=== PATIENT | female | born 1985 | race Caucasian/White ===

== ENCOUNTER 2019-10-01 11:37 | Emergency (ER) | payer OTHER, SELFPAY ==
--- NOTE | 2019-10-01 12:03 | ED.SKABFB ---
HPI - Skin/Abscess/Foreign Bdy General Chief complaint: Skin/Abscess/Foreign Body Stated complaint: Rash Time Seen by Provider: 10/01/19 12:39 Source: patient and RN notes reviewed Mode of arrival: ambulatory Limitations: no limitations History of Present Illness HPI narrative: 34-year-old female, who is breast-feeding a 2-month-old infant, presents with concern for poison bharathi. Reports exposure to poison bharathi via her dog. Reports history of allergy to poison bharathi. Reports she has been using [id number] poison bharathi itch relief. MD complaint: rash Related Data Home Medications Medication Instructions Recorded Confirmed nifedipine 90 mg PO DAILY 10/01/19 10/01/19 Allergies Allergy/AdvReac Type Severity Reaction Status Date / Time No Known Allergies Allergy Verified 10/01/19 12:21 Review of Systems Review of Systems: Narrative: CONSTITUTIONAL: Denies malaise, chills, sweats, or fever. EYES: Denies visual changes, redness, or discharge. ENT: Denies rhinorrhea, congestion, sinus pain, otalgia or sore throat. CARDIOVASCULAR: Denies chest pain, palpitations, or edema. RESPIRATORY: Denies cough or dyspnea. SKIN: Reports itchy rash on bilateral arms and legs All systems reviewed & are unremarkable except as noted in HPI and below PMFSH Comments At time of signature, agree with nursing past medical, surgical, social and family history. There is no relevant family history pertinent to the presenting complaint Exam Narrative: Exam Narrative: GENERAL: Well-appearing, well-nourished, and in no acute distress. HEAD: Normocephalic EYES: PERRLA, conjunctivae clear ENT: Nares clears. Mucous membranes moist. Oropharynx without edema, erythema or lesions. Tonsils not enlarged and without exudate. NECK: Supple. CHEST: No respiratory distress. Clear to auscultation. No bony deformities, no asymmetry. Speaks in full sentences. HEART: Regular rate and rhythm. SKIN: Warm, dry. Patches of erythema, some linear patterns. No vesicles noted. NEURO: Alert and oriented x3. PSYCH: Normal mood and affect Course Course Emergency Course: Patient is aware of diagnosis, understands and agrees to treatment plan. Anticipatory guidance given. Patient agrees to follow-up as directed and is aware of reasons to seek care at the emergency department. Portions of this record may have been created with voice recognition software Vital Signs Vital signs: Vital Signs Temperature 98.0 F 10/01/19 12:10 Pulse Rate 65 10/01/19 12:10 Respiratory Rate 10/01/19 12:10 Blood Pressure 111/72 10/01/19 12:10 Pulse Oximetry 100 10/01/19 12:10 Temperature 98.0 F 10/01/19 12:10 Pulse Rate 65 10/01/19 12:10 Respiratory Rate 10/01/19 12:10 Blood Pressure 111/72 10/01/19 12:10 Pulse Oximetry 100 10/01/19 12:10 Reviewed. MDM - Skin/Abscess/Foreign Bdy MDM Narrative Medical decision making narrative: Does not appear at this time to be erythema multiforme, bullous, SJS, TEN; no evidence at this time to suggest RMSF, endocarditis or Lyme disease; patient looks well, nontoxic and is tolerating oral intake; no neurologic signs or symptoms; no headache, photophobia or neck pain; afebrile; appropriate for initial outpatient treatment; discussed the importance of follow-up, patient agrees; question, viral exanthema, contact dermatitis, allergic dermatitis, eczema, urticaria, plant related contact dermatitis. No soft palate or uvula edema, no tongue, lip edema or other mucosal involvement, no respiratory compromise, no stridor, no wheezing, no wheezing, no history of syncope, no hypotension, no nausea, vomiting, or diarrhea. Instructed patient to go to nearest ER immediately for any worsening symptoms including but not limited to: fever, spreading rash, pain, sore throat, headache, dizziness, chest pain, trouble breathing, or any symptoms concerning to the patient. Critical Care Time Critical Care Time Critical Care Time: No
[2019-10-01 12:10] VITALS: BP 111/72; PULSE 65; RESP 20; TEMP 36.7; O2SAT 100
== END 2019-10-01 12:50 | disposition home or self-care (01) ==
PROVIDERS: Emergency Provider Nurse Practitioner
DX: L25.5 Unspecified contact dermatitis due to plants, except food (principal)
CPT/HCPCS: 99203; G0463

== ENCOUNTER 2019-10-02 15:17 | Emergency (ER) | payer OTHER, SELFPAY ==
[2019-10-02 15:23] VITALS: BP 109/68; PULSE 68; RESP 20; TEMP 36.6; O2SAT 100
--- NOTE | 2019-10-02 15:31 | ED.GENADULT ---
HPI - General Adult General Chief complaint: Skin/Abscess/Foreign Body Stated complaint: RASH Time Seen by Provider: 10/02/19 15:31 Source: patient and RN notes reviewed Mode of arrival: ambulatory Limitations: no limitations History of Present Illness HPI narrative: This is a 34 years old female presents to the office for an second opinion regarding her rash. She believes is scabies after looking up her symptoms online. She reports her sign and symptoms indicate scabies because she has intense itch at night and she also noticed that when she applies pink lotion on her lesions; they turn black. She has had poison bharathi in the past; which it never done that for her. She was recently in the hospital for delivery; she concerns that where she gets the scabies from. Denies sick contact. She has dogs who goes out in the wood and brought her poison bharathi at times. Related Data Home Medications Medication Instructions Recorded Confirmed nifedipine 90 mg PO DAILY 10/01/19 10/01/19 Allergies Allergy/AdvReac Type Severity Reaction Status Date / Time No Known Allergies Allergy Verified 10/02/19 15:24 Review of Systems Review of Systems: Narrative: CONSTITUTIONAL: Denies fever, chills ENT: Denies congestion CARDIOVASCULAR: Denies chest pain RESPIRATORY: Denies dyspnea GASTROINTESTINAL: Denies abdominal pain, nausea, vomiting SKIN: Reports itchy rash/lesions on her left arm and right hip. MUSCULOSKELETAL: Denies joins pain NEUROLOGIC: Denies lightheaded All other systems reviewed are negative, except as documented in HPI. [facility] Past Medical History Medical History (Updated 10/02/19 @ 16:00 by CONNER Gamez) HTN (hypertension) Comments At time of signature, I agree with nursing past medical, surgical, social and family history. There is no relevant family history pertinent to the presenting complaint. Exam Narrative: Exam Narrative: GENERAL: This is a well-nourished, well-developed patient, in no apparent distress. CARDIOVASCULAR: Regular rate and rhythm without murmurs, gallops, or rubs. RESPIRATORY: Clear to auscultation. Breath sounds equal bilaterally. No wheezes, rales, or rhonchi. GASTROINTESTINAL: Abdomen soft, non-tender, nondistended. Bowel sounds are active. No hepato-splenomegaly, or palpable masses. No guarding. SKIN: left anterior forearm noted macular-erythema lesions with a few linear streak. Right hip noted similar lesions without lymphandenititis. No janey signs. NO lesions on her fingers/fingers web. NEURO: awake, alert, and oriented to person, place and time. There were no obvious focal neurologic abnormalities. Steady gait EXTREMITIES: Normal range of motion. No edema. [place] Coma Scale Eye Opening: Spontaneous 4 [place] Coma Scale Motor: Obeys Commands 6 [place] Coma Scale Verbal: Oriented 5 Course Vital Signs Vital signs: Vital Signs Temperature 97.9 F 10/02/19 15:23 Pulse Rate 68 10/02/19 15:23 Respiratory Rate 10/02/19 15:23 Blood Pressure 109/68 10/02/19 15:23 Pulse Oximetry 100 10/02/19 15:23 Temperature 97.9 F 10/02/19 15:23 Pulse Rate 10/02/19 15:23 Respiratory Rate 10/02/19 15:23 Blood Pressure 109/68 10/02/19 15:23 Pulse Oximetry 100 10/02/19 15:23 Medical Decision Making MDM Narrative Medical decision making narrative: Lesion does not follow a patterns of scabies, bedbugs, or insect bite discuss with patient. Discharge instructions reviewed with patient, as well as provided in writing per nursing staff. The instructions also include specific and strict return/GO TO THE ER as well as f/u information. All questions have been answered, and the patient deny any further questions with discharge and discharge plan. Differential Diagnosis Differential Diagnosis: Contact/allergic dermatitis, atopic dermatitis, psoriasis, eczema, cellulitis, tinea, erythema multiforme, viral exanthem, drug eruption Medical Records Medical rec
== END 2019-10-02 15:55 | disposition home or self-care (01) ==
PROVIDERS: Emergency Provider Nurse Practitioner
DX: L30.9 Dermatitis, unspecified (principal); I10 Essential (primary) hypertension
CPT/HCPCS: 99211; 99213; G0463